=== PATIENT | female | born 1945 | race Two or more races ===

== ENCOUNTER 2021-05-22 05:16 | Inpatient (IN) ==
[2021-05-22 05:41] LABS: Basophils # (auto) 0.01 K/uL (0-0.2); Basophils % (auto) 0.1 %; Eosinophils # (auto) 0.28 K/uL (0-0.5); Eosinophils % (auto) 3.7 %; Hemoglobin 14.6 g/dL (12.0-16.0); Immature Granulocytes # (auto) 0.02 K/uL (0.00-0.02); Immature Granulocytes % (auto) 0.3 %; Lymphocytes # (auto) 1.81 K/uL (1.2-3.4); Lymphocytes % (auto) 23.6 %; Mean Corpuscular Hemoglobin 27.9 pg (25-34); Mean Corpuscular Hgb Conc 33.2 g/dL (32-36); Mean Platelet Volume 10.5 fL (7.4-10.4); Monocytes # (auto) 0.77 K/uL (0.11-0.59); Neutrophils # (auto) 4.78 K/uL (1.4-6.5); Neutrophils % (auto) 62.3 %; Platelet Count 299 K/uL (130-400); RDW Coefficient of Variation 13.9 % (11.5-14.5); RDW Standard Deviation 42.3 fL (36.4-46.3); Red Blood Count 5.24 M/uL (4.2-5.4); White Blood Count 7.67 K/uL (4.8-10.8)
[2021-05-22] MEDS ORDERED: ALBUT/IPRATROP 3MG/0.5MG NEB 3 ML VIAL NEB ONE (05:52)
[2021-05-22 05:59] LABS: Alanine Aminotransferase 24 U/L (12-78); Albumin Level 3.9 gm/dl (3.4-5.0); Aspartate Aminotransferase 24 U/L (15-37); BUN Creatinine Ratio 11.7 (10-20); Blood Urea Nitrogen 11 mg/dl (7-18); Calcium 9.3 mg/dl (8.5-10.1); Carbon Dioxide 25 mmol/L (21-32); Chloride 104 mmol/L (98-107); Creatinine Clr Calc Pharmacy 40.4 ml/min; Est GFR (African American) 67.1 ml/min; Est GFR (Non-African American) 57.9 ml/min; Glucose 157 mg/dl (70-99); Magnesium 2.4 mg/dl (1.8-2.4); Potassium 3.6 mmol/L (3.5-5.1); Sodium 136 mmol/L (136-145)
[2021-05-22 06:04] LABS: Albumin Globulin Ratio 0.8 (0.9-2); Alkaline Phosphatase 110 U/L (45-117); Bilirubin,Total 0.4 mg/dl (0.2-1); NT Pro B Type Natriuretic Pept 137 pg/ml (0-900); Total Protein 8.9 gm/dl (6.4-8.2); Troponin I < 0.015 ng/ml (0-0.045)
[2021-05-22] MEDS ORDERED: methylPREDNISolone 125 MG/2 ML VIAL IV STA (06:11)
[2021-05-22] MEDS ORDERED: MAGNESIUM SULFATE / D5W 1 GM/100 ML BAG IV STA (06:11)
--- NOTE | 2021-05-22 06:20 | Emergency Department Note ---
History of Present Illness General Chief complaint: Respiratory Problems Stated complaint: HARD TIME BREATHING Time Seen by Provider: 05/22/21 05:28 Source: patient Mode of arrival: ambulatory Limitations: physical limitation History of Present Illness Provider complaint: trouble breathing Onset (ago): day(s) 3 Treatments prior to arrival: none This is a 75-year-old female presents emergency department complaining of increased shortness of breath. Patient markedly dyspneic, can speak in 1 or 2 word phrases to obtain history which was limited due to her clinical acuity. Patient states she has a history of both heart and lung problems. Patient states she has previously been hospitalized for difficulty breathing. Patient denies any recent fevers or chills. Denies any recent illness. Denies that she lives with anyone who is sick. States she does use inhalers at home. States she does not wear home oxygen. Pt seen during a time of high acuity and national emergency pandemic while wearing PPE. Home Medications Medication Instructions Recorded Confirmed Type albuterol sulfate 90 mcg/actuation 2 puff INHALATION Q6H PRN 04/25/20 05/22/21 History aerosol inhaler (Ventolin HFA) aspirin 81 mg tablet,delayed 81 mg PO DAILY #30 tab 04/25/20 05/22/21 Rx release (Adult Aspirin Regimen) cyclobenzaprine 10 mg tablet 10 mg PO TID PRN 04/25/20 05/22/21 History omeprazole 20 mg capsule,delayed 20 mg PO QAM 04/25/20 05/22/21 History release tiotropium bromide 18 mcg capsule 1 cap INHALATION DAILY #30 inh 04/25/20 05/22/21 Rx with inhalation device (Spiriva with HandiHaler) betamethasone dipropionate 0.05 % 1 applic TOPICAL DAILY PRN #15 g 05/23/20 05/22/21 Rx topical cream nitroglycerin 0.4 mg sublingual 0.4 mg SUBLINGUAL Q5M PRN #30 tab 05/23/20 05/22/21 Rx tablet atorvastatin 40 mg tablet 40 mg PO HS 05/22/21 05/22/21 History duloxetine 30 mg capsule,delayed 30 mg PO QAM 05/22/21 05/22/21 History release (Cymbalta) fluticasone 250 mcg-salmeterol 50 1 inh INHALATION Q12H 05/22/21 05/22/21 History mcg/dose blistr powdr for inhalation (Advair Diskus) ibuprofen 200 mg tablet 600 mg PO Q6H PRN 05/22/21 05/22/21 History lisinopril 20 mg tablet 20 mg PO QAM 05/22/21 05/22/21 History promethazine 25 mg tablet 25 mg PO TID PRN 05/22/21 05/22/21 History Allergies Allergy/AdvReac Type Severity Reaction Status Date / Time No Known Allergies Allergy Verified 05/22/21 07:08 Past Med/Surg History Medical History COPD (chronic obstructive pulmonary disease) Coronary artery disease Hypertension Myocardial infarct, old Surgical History History of appendectomy History of delivery History of hysterectomy Family History Denies family history of Ovarian cancer Prostate cancer Myocardial infarction Breast cancer Colorectal cancer Social History Smoking Status: Never smoker Second Hand Exposure: No; Do You Dip or Chew Tobacco: No; Tobacco Cessation Education Requested by Patient: No Hx Alcohol Use: No Hx Substance Use: No Preferred Language: Beninese Communication Ability: Effective Certified Orthotist Practice Manager Required: No Beliefs That Will Affect Care: None marital status: Current Living Situation: Family current occupational status: retired Other Information That Helps Us Care for You: No Feels Safe at Home: Yes Safety Concerns: Feels Safe At This Time Dental Care, Regularly: Yes Physical Activity Frequency: Other Physical Activity Frequency Comment: not regular-up and down stairs Seatbelt Use: always Sunscreen Use: No Assistive Devices: Oxygen - Continuous Review of Systems A total of 10 systems reviewed and were otherwise negative All systems reviewed & are unremarkable except as noted in HPI & below Physical Exam Vital Signs Vital Signs - 24 hr 05/22/21 07:00 05/22/21 07:30 05/22/21 08:00 Pulse Rate 99 H 98 H 93 H Pulse Rate from SpO2 Sensor 101 H 103 H 91 H Respiratory Rate 24 23 22 Blood Pressure 142/106 H Blood Pressure Mean 118 Pulse Oximetry 95 100 100 Oxygen Delivery Method Oxygen Flow Rate 05/22/21 08:30 05/22/21 09:00 Pulse Rate 103 H 96 H Pulse Rate from SpO2 Sensor 102 H 97 H Respiratory Rate 27 H 22 Blood Pressure 148/98 H Blood Pressure Mean 114 Pulse Oximetry 96 97 Oxygen Delivery Method Nasal Cannula Oxygen Flow Rate 3 GENERAL: alert, unwell appearing, well nourished, severe distress, non-toxic EYE EXAM: normal conjunctiva, PERRL and EOM's grossly intact OROPHARYNX: no exudate, no erythema, lips, buccal mucosa, and tongue normal and mucous membranes are moist NECK: supple, no nuchal rigidity, no adenopathy, non-tender, no stridor LUNGS: Clear to auscultation. Normal chest wall mechanics, audible wheezing from the doorway HEART: no murmurs, S1 normal and S2 normal ABDOMEN: abdomen soft, non-tender, normo-active bowel sounds, no masses, no rebound or guarding. BACK: Back is symmetrical on inspection and there is no deformity, no midline tenderness, no CVA tenderness. SKIN: no rashes and no bruising UPPER EXTREMITIES: upper extremities are grossly normal. FROM, nml pulses b/l. LOWER EXTREMITIES: No pitting edema. FROM, nml pulses b/l. NEURO EXAM: Normal sensorium, cranial nerves II-XII grossly intact, normal speech, no gross weakness of arms, no gross weakness of legs. Gross sensation intact. Course Course 0602: Patient on BiPAP, oxygen saturations improved. Patient updated on chest x -ray result. Family now at bedside states patient's breathing has been worsening over the last 2 to 3 days. Cough worsened earlier tonight, and then he was awakened and could hear her breathing in his bedroom and knew that she needed to come to the ER. He denies there are any sick contacts in the household. Administered Medications Albuterol (Albut/Ipratrop 3mg/0.5mg Neb 3 Ml Vial) 3 ml NEB QIDR EZEQUIEL Stop: 06/21/21 11:34 Last Admin: 05/22/21 20:03 Dose: 3 ml Documented by: [id number] Admin: 05/22/21 14:17 Dose: 3 ml Documented by: [id number] Admin: 05/22/21 12:08 Dose: 3 ml Documented by: [id number] Aspirin (Aspirin 81 Mg Ectab) 81 mg PO DAILY [facility] Stop: 06/21/21 11:59 Last Admin: 05/22/21 13:07 Dose: 81 mg Documented by: [id number] Atorvastatin Calcium (Atorvastatin 40 Mg Tab) 40 mg PO HS [facility] Stop: 06/21/21 20:59 Last Admin: 05/22/21 21:45 Dose: 40 mg Documented by: [id number] Duloxetine HCl (Duloxetine Hcl 30 Mg Cap) 30 mg PO QAM [facility] Stop: 06/21/21 11:59 Last Admin: 05/22/21 13:06 Dose: 30 mg Documented by: [id number] Enoxaparin Sodium (Enoxaparin Inj 40 Mg/0.4 Ml Syr) 40 mg SQ DAILY@1200 [facility] Stop: 06/21/21 11:59 Last Admin: 05/22/21 13:07 Dose: 40 mg Documented by: [id number] Guaifenesin (Guaifenesin 600 Mg Tabcr) 600 mg PO Q12 [facility] Stop: 06/21/21 20:59 Last Admin: 05/22/21 21:46 Dose: 600 mg Documented by: [id number] Azithromycin 500 mg/ Dextrose 255 mls @ 127.5 mls/hr IV DAILY@1200 [facility] Stop: 05/29/21 11:59 Last Infusion: 05/22/21 15:45 Dose: 0 mls/hr Documented by: [id number] Admin: 05/22/21 13:04 Dose: 127.5 mls/hr Documented by: [id number] Methylprednisolone 40 mg/ (Syringe) 0.64 mls @ 1.5 mls/min IV Q8H [facility] Stop: 06/21/21 19:59 Last Admin: 05/23/21 04:34 Dose: 1.5 mls/min Documented by: [id number] Admin: 05/22/21 19:41 Dose: 1.5 mls/min Documented by: [id number] Lisinopril (Lisinopril 20 Mg Tab) 20 mg PO QAM [facility] Stop: 06/21/21 11:59 Last Admin: 05/22/21 13:06 Dose: 20 mg Documented by: [id number] Discontinued Medications Albuterol (Albut/Ipratrop 3mg/0.5mg Neb 3 Ml Vial) 12 ml NEB ONE ONE Stop: 05/22/21 05:53 Last Admin: 05/22/21 06:14 Dose: 12 ml Documented by: [id number] Magnesium Sulfate/Dextrose (Magnesium Sulfate / D5w) 1 gm in 100 mls @ 100 mls/hr IV NOW STA Stop: 05/22/21 07:10 Last Infusion: 05/22/21 09:28 Dose: 0 mls/hr Documented by: [id number] Admin: 05/22/21 06:27 Dose: 100 mls/hr Documented by: [id number] Doxycycline Hyclate 100 mg/ (Dextrose) 110 mls @ 50 mls/hr IV NOW STA Stop: 05/22/21 09:03 Last Infusion: 05/22/21 10:10 Dose: 0 mls/hr Documented by: [id number] Admin: 05/22/21 07:37 Dose: 50 mls/hr Documented by: [id number] Methylprednisolone (Methylprednisolone 125 Mg/2 Ml Vial) 60 mg IV NOW STA Stop: 05/22/21 06:12 Last Admin: 05/22/21 06:26 Dose: 60 mg Documented by: [id number] Methylprednisolone (Methylprednisolone 40 Mg/Ml Vial) 40 mg IV Q8H EZEQUIEL Stop: 06/21/21 10:03 Last Admin: 05/22/21 11:33 Dose: 40 mg Documented by: [id number] Critical Care Time Critical Care Time: Yes Total Critical Care Time: 43 Critical care of 43 min performed to assess and manage high likelihood of life- threatening dyspnea and hypoxia, involving labs and imaging performed with assessment to evaluate dyspnea and hypoxia diagnosis with frequent reassessment. This time includes bedside time, treatment discussions with patient/fa jamie/consultants, documentation time and excludes procedure time. Medical Decision Making Differential Diagnosis Differential diagnoses includes but is not limited to pneumonia, bronchitis, COPD/Asthma exacerbation, pneumothorax, pulmonary embolism, congestive heart failure, acute coronary syndrome Medical Records Attestation: I reviewed the patient's medical records. Home Medications Current Medication List: was personally reviewed by me Laboratory Data Attestation: I reviewed the patient's lab results. Result diagrams: 05/22/21 05:25 05/22/21 05:25 Lab Results 05/22/21 05/22/21 05/22/21 Range/Units 05:25 05:25 05:54 WBC 7.67 (4.8-10.8) K/uL RBC 5.24 (4.2-5.4) M/uL Hgb 14.6 (12.0-16.0) g/dL Hct 44.0 (37-47) % MCV 84.0 (80-100) fL MCH 27.9 (25-34) pg MCHC 33.2 (32-36) g/dL RDW Std Deviation 42.3 (36.4-46.3) fL RDW Coeff of Patricia 13.9 (11.5-14.5) % Plt Count 299 (130-400) K/uL MPV 10.5 H (7.4-10.4) fL Immature Gran % (Auto) 0.3 % Neut % (Auto) 62.3 % Lymph % (Auto) 23.6 % Holt % (Auto) 10.0 % Eos % (Auto) 3.7 % Baso % (Auto) 0.1 % Neut # (Auto) 4.78 (1.4-6.5) K/uL Lymph # (Auto) 1.81 (1.2-3.4) K/uL Holt # (Auto) 0.77 H (0.11-0.59) K/uL Eos # (Auto) 0.28 (0-0.5) K/uL Baso # (Auto) 0.01 (0-0.2) K/uL Immature Gran # (Auto) 0.02 (0.00-0.02) K/uL ABG pH Cancelled ABG pCO2 Cancelled ABG pO2 Cancelled ABG HCO3 Cancelled ABG O2 Saturation Cancelled ABG Base Excess Cancelled Joey Test Cancelled Barometric Pressure Cancelled Oxygen Given Cancelled Sodium 136 (136-145) mmol/L Potassium 3.6 (3.5-5.1) mmol/L Chloride 104 (98-107) mmol/L Carbon Dioxide 25 (21-32) mmol/L Anion Gap 7.0 (3-11) BUN 11 (7-18) mg/dl Creatinine 0.96 (0.6-1.2) mg/dl Est Cr Clr Drug Dosing 40.4 ml/min Est GFR ( Amer) 67.1 ml/min Est GFR (Non-Af Amer) 57.9 ml/min BUN/Creatinine Ratio 11.7 (10-20) Glucose 157 H (70-99) mg/dl Calcium 9.3 (8.5-10.1) mg/dl Magnesium 2.4 (1.8-2.4) mg/dl Total Bilirubin 0.4 (0.2-1) mg/dl AST 24 (15-37) U/L ALT 24 (12-78) U/L Alkaline Phosphatase 110 (45-117) U/L Troponin I < 0.015 (0-0.045) ng/ml NT-Pro-B Natriuret Pep 137 (0-900) pg/ml Total Protein 8.9 H (6.4-8.2) gm/dl Albumin 3.9 (3.4-5.0) gm/dl Globulin 5.0 H (2.5-4.0) gm/dl Albumin/Globulin Ratio 0.8 L (0.9-2) COVID-19 Eval Order SARS-CoV-2 (PCR) (Negative) 05/22/21 05/22/21 05/22/21 Range/Units 06:24 06:24 06:41 WBC (4.8-10.8) K/uL RBC (4.2-5.4) M/uL Hgb (12.0-16.0) g/dL Hct (37-47) % MCV (80-100) fL MCH (25-34) pg MCHC (32-36) g/dL RDW Std Deviation (36.4-46.3) fL RDW Coeff of Patricia (11.5-14.5) % Plt Count (130-400) K/uL MPV (7.4-10.4) fL Immature Gran % (Auto) % Neut % (Auto) % Lymph % (Auto) % Holt % (Auto) % Eos % (Auto) % Baso % (Auto) % Neut # (Auto) (1.4-6.5) K/uL Lymph # (Auto) (1.2-3.4) K/uL Holt # (Auto) (0.11-0.59) K/uL Eos # (Auto) (0-0.5) K/uL Baso # (Auto) (0-0.2) K/uL Immature Gran # (Auto) (0.00-0.02) K/uL ABG pH 7.38 ABG pCO2 39 ABG pO2 203 H ABG HCO3 23 ABG O2 Saturation 99.5 H ABG Base Excess -2.4 Joey Test p Barometric Pressure 738.2 Oxygen Given 30% Sodium (136-145) mmol/L Potassium (3.5-5.1) mmol/L Chloride (98-107) mmol/L Carbon Dioxide (21-32) mmol/L Anion Gap (3-11) BUN (7-18) mg/dl Creatinine (0.6-1.2) mg/dl Est Cr Clr Drug Dosing ml/min Est GFR ( Amer) ml/min Est GFR (Non-Af Amer) ml/min BUN/Creatinine Ratio (10-20) Glucose (70-99) mg/dl Calcium (8.5-10.1) mg/dl Magnesium (1.8-2.4) mg/dl Total Bilirubin (0.2-1) mg/dl AST (15-37) U/L ALT (12-78) U/L Alkaline Phosphatase (45-117) U/L Troponin I (0-0.045) ng/ml NT-Pro-B Natriuret Pep (0-900) pg/ml Total Protein (6.4-8.2) gm/dl Albumin (3.4-5.0) gm/dl Globulin (2.5-4.0) gm/dl Albumin/Globulin Ratio (0.9-2) COVID-19 Eval Order Covid19 at [facility] SARS-CoV-2 (PCR) NEGATIVE (Negative) Imaging Data Attestation: I personally reviewed and interpreted this imaging study as follows: My Impression: X-ray: I interpreted the following studies. Chest: A single view study of the chest was reviewed and was negative for cardiomegaly, focal infiltrate, effusion, pulmonary edema, or wide mediastinum. MDM Narrative This is a 75-year-old female who presents with significant dyspnea, work of breathing, tachypnea and was noted to be profoundly hypoxic. She was emergently placed on supplemental oxygen via nasal cannula and I was called urgently to the room. I immediately called respiratory therapy and asked that they bring BiPAP to the bedside. Patient was able to nod and shake her head regarding a very brief initial history. Following treatment with BiPAP, continuous nebulizer, IV Solu-Medrol and IV magnesium, patient's work of breathing decreased, tachypnea decreased, repeat lung exams continued to improve, patient was able to provide additional history. Patient had been worsening over the last several days, increased cough, no change in sputum, denies fevers or chills, denies any known sick contacts. Patient does not typically wear oxygen at home. Patient also has accompanying cardiac history. Discussed all results with patient and family at bedside, despite improvement, I did discuss with him continued monitoring as a precaution. Patient was slowly able to be weaned down to oxygen via nasal cannula. Patient's EKG without acute changes and troponin negative, I do not suspect ACS. No chest x-ray evidence for pulmonary edema or focal infiltrate. I do not suspect PE. An order was placed for continuous cardiac monitoring. The monitor shows a rate of _80_ with _normal sinus_ rhythm. Impression & Plan Dyspnea, COPD exacerbation, Hypoxia Discharge Plan Visit Data Chief Complaint: Respiratory Problems Stated Complaint: HARD TIME BREATHING ED Provider: Faith Torrez Discharge Problem: Dyspnea, COPD exacerbation, Hypoxia Patient Disposition: Admitted As Inpatient Condition: Good Discharge Instructions Interventions: ED Discharge Assessment Last Done: 05/22/21 10:56 Discharge Problem: Dyspnea Qualifiers: Dyspnea type: shortness of breath Qualified Code(s): R06.02 - Shortness of breath
[2021-05-22] MEDS ORDERED: DOXYCYCLINE HYCLATE 100 MG in DEXTROSE 5% 100 ML IV STA (06:52)
[2021-05-22 06:55] LABS: Base Excess ABG -2.4 mEq/L (-9-1.8); HCO3 ABG 23 mmol/L (19-24); Oxygen Saturation ABG 99.5 % (90-95); PCO2 ABG 39 mmHg (35-46); PO2 ABG 203 mmHg (80-95); pH ABG 7.38 (7.35-7.45)
--- NOTE | 2021-05-22 07:20 | XRay Report ---
XR chest 1V portable CLINICAL HISTORY: sob. COMPARISON STUDY: No previous studies for comparison. TECHNIQUE: 1 view of the chest FINDINGS: Single frontal view of the chest demonstrates the cardiomediastinal silhouette to be within normal li mits. The lungs are clear of alveolar opacities. There is no evidence for pleural effusion. There is no evidence for vascular congestion. There is no acute osseous pathology. IMPRESSION: No acute cardiopulmonary disease. ACT 112: Negative or not required by law. Electronically signed by: Jeremías Martinez M.D. 05/22/2021 7:19 AM
--- NOTE | 2021-05-22 10:05 | History & Physical Report ---
Date of Service May 22, 2021 Assessment & Plan (1) COPD exacerbation: Plan: Attending: Dr. Rao Impression: 75-year-old female with a past medical history including COPD, CAD, history of [place], anxiety, hypertension, cerebrovascular disease. 2 to 3-day progressive COPD exacerbation with shortness of breath, wheezes, cough. Negative for COVID-19. Responded well to hour-long nebulizer treatment in the emergency department Patient with history of COPD as diagnosed in [facility] with pulmonary function testing Patient son will try to obtain copies of the PFT reports While inpatient, will treat with methylprednisolone IV 40 mg 3 times daily DuoNeb 4 times daily scheduled We will change patient from her home Spiriva and Advair Diskus to Brio Ellipta while inpatient Due to exacerbation, will most likely need to discharge home on Brio Ellipta We will need to follow-up in the pulmonary office and establish as a new patient. Patient received doxycycline in the emergency department. We will convert to azithromycin while inpatient for the anti-inflammatory properties Follow on med telemetry secondary to hypoxia on arrival (2) Anxiety: Plan: Continue outpatient Cymbalta We will add lorazepam 0.5 mg IV every 6 hours for anxiety secondary to shortness of breath (3) Hypertension: Plan: Continue lisinopril Follow on telemetry per protocol (4) Coronary artery disease: Plan: History of [place] in the past No recent chest pain or tightness Follow on medical telemetry Continue aspirin 81 mg p.o. daily (5) Cerebrovascular disease: Plan: No neurological deficits on exam Continue aspirin 81 mg p.o. daily (6) DVT prophylaxis: Plan: Chemical prophylaxis with enoxaparin 40 mg SQ daily Ambulate as tolerated Please refer to Dr. Rao's addendum for further recommendations and cor rections. Plan: Son is obtaining pulmonary function tests from previous house superintendent Will most likely need repeat PFTs as an outpatient as well as an outpatient appointment with [place] [facility] [place] History of Present Illness Chief Complaint: COPD exacerbation Primary Care Provider: Faith Rodriguez MD Attending: Dr. Rao 75-year-old female with a past medical history including COPD, CAD, history of [place], anxiety, hypertension, cerebrovascular disease. Patient presents with a 2 to 3-day history of progressive shortness of breath. Last night approximidnight her breathing got worse and she had severe bronchospasm. She has a nebulizer at home but does not have any ampules so she was only able to use her rescue inhaler. As the night progressed, she got more short of breath. She presented the emergency department and was given a 1 hour long nebulizer treatment. She was also given 60 mg of methylprednisolone IV and doxycycline 100 mg IV. She improved but continues to have shortness of breath and diffuse bronchospasm. Patient currently denies any chest pain or tightness. She is unaware of tachyarrhythmia. She has no nausea or vomiting. She denies any fever, chills, sweats, rigors at home. No nausea or vomiting. No other previous illness. Patient has not received her Covid vaccinations. She desires to be vaccinated but has not been able to coordinate with outpatient providers. PCR testing in the emergency department was negative. Patient is a lifelong non-smoker. She has no significant vocational exposure to chemicals, dust, silicone. Patient currently lives with her son and grandchildren. No one else in the home has been ill and no one has history of Covid. Allergies Allergy/AdvReac Type Severity Reaction Status Date / Time No Known Allergies Allergy Verified 05/22/21 07:08 Home Medications Medication Instructions Recorded Confirmed Type albuterol sulfate 90 mcg/actuation 2 puff INHALATION Q6H PRN 04/25/20 05/22/21 History aerosol inhaler (Ventolin HFA) aspirin 81 mg tablet,delayed 81 mg PO DAILY #30 tab 04/25/20 05/22/21 Rx release (Adult Aspirin Regimen) cyclobenzaprine 10 mg tablet 10 mg PO TID PRN 04/25/20 05/22/21 History omeprazole 20 mg capsule,delayed 20 mg PO QAM 04/25/20 05/22/21 History release tiotropium bromide 18 mcg capsule 1 cap INHALATION DAILY #30 inh 04/25/20 05/22/21 Rx with inhalation device (Spiriva with HandiHaler) betamethasone dipropionate 0.05 % 1 applic TOPICAL DAILY PRN #15 g 05/23/20 05/22/21 Rx topical cream nitroglycerin 0.4 mg sublingual 0.4 mg SUBLINGUAL Q5M PRN #30 tab 05/23/20 05/22/21 Rx tablet atorvastatin 40 mg tablet 40 mg PO HS 05/22/21 05/22/21 History duloxetine 30 mg capsule,delayed 30 mg PO QAM 05/22/21 05/22/21 History release (Cymbalta) fluticasone 250 mcg-salmeterol 50 1 inh INHALATION Q12H 05/22/21 05/22/21 History mcg/dose blistr powdr for inhalation (Advair Diskus) ibuprofen 200 mg tablet 600 mg PO Q6H PRN 05/22/21 05/22/21 History lisinopril 20 mg tablet 20 mg PO QAM 05/22/21 05/22/21 History promethazine 25 mg tablet 25 mg PO TID PRN 05/22/21 05/22/21 History Past Med/Surg History Medical History COPD (chronic obstructive pulmonary disease) Coronary artery disease Hypertension Myocardial infarct, old Surgical History History of appendectomy History of delivery History of hysterectomy Family History Denies family history of Ovarian cancer Prostate cancer Myocardial infarction Breast cancer Colorectal cancer Social History Smoking Status: Never smoker Second Hand Exposure: No; Do You Dip or Chew Tobacco: No; Tobacco Cessation Education Requested by Patient: No Hx Alcohol Use: No Hx Substance Use: No Preferred Language: Arabic Communication Ability: Effective Microsoft Application Developer Required: No Beliefs That Will Affect Care: None marital status: Current Living Situation: Family current occupational status: retired Other Information That Helps Us Care for You: No Feels Safe at Home: Yes Safety Concerns: Feels Safe At This Time Dental Care, Regularly: Yes Physical Activity Frequency: Other Physical Activity Frequency Comment: not regular-up and down stairs Seatbelt Use: always Sunscreen Use: No Assistive Devices: Oxygen - Continuous Review of Systems Review of Systems: All systems reviewed & are unremarkable except as noted in Subjective Physical Exam Physical Exam: GENERAL : No acute distress EYES: No icterus, gaze conjugate NOSE: No evidence of epistaxis MOUTH: No lesions or candidiasis NECK: Supple LUNGS: Diffuse bronchospasm and rhonchi. Very diminished breath sounds. Good inspirational effort but limited movement of air. HEART: Regular, rate in the low 100s ABDOMEN: Soft, NT, ND, BS Present EXTREMITIES: No LE edema, pedal pulses intact and equal bilaterally NEURO: A&OX3 Results & Data Results & Data ([facility]) Vital Signs (Past 12 Hours) Vital Signs Temp Pulse Resp BP Pulse Ox 05/22/21 09:00 96 H 22 148/98 H 97 05/22/21 08:30 103 H 27 H 96 05/22/21 08:00 93 H 22 100 05/22/21 07:30 98 H 23 142/106 H 100 05/22/21 07:00 99 H 24 95 05/22/21 06:30 107 H 26 H 150/110 H 100 05/22/21 06:14 20 100 05/22/21 06:12 97 H 27 H 96 05/22/21 06:00 110 H 28 H 148/126 H 97 05/22/21 05:34 112 H 27 H 189/162 H 97 05/22/21 05:30 37.4 C 114 H 28 H 189/162 H 83 L 05/22/21 05:29 110 H 29 H 95 Laboratory Results 05/22/21 05:25 05/22/21 05:25 COVID-19 Results 05/22/21 06:24 SARS-CoV-2 (PCR) NEGATIVE 05/22/21 05/22/21 05:54 06:41 ABG pH Cancelled 7.38 ABG pCO2 Cancelled 39 ABG pO2 Cancelled 203 H ABG HCO3 Cancelled 23 ABG O2 Saturation Cancelled 99.5 H ABG Base Excess Cancelled -2.4 05/22/21 05:25 Troponin I < 0.015 Diagnostic Findings Chest X-Ray 05/22/21 05:28 XR chest 1V portable CLINICAL HISTORY: sob. COMPARISON STUDY: No previous studies for comparison. TECHNIQUE: 1 view of the chest FINDINGS: Single frontal view of the chest demonstrates the cardiomediastinal silhouette to be within normal limits. The lungs are clear of alveolar opacities. There is no evidence for pleural effusion. There is no evidence for vascular congestion. There is no acute osseous pathology. IMPRESSION: No acute cardiopulmonary disease. ACT 112: Negative or not required by law. Electronically signed by: Jeremías Martinez M.D. 05/22/2021 7:19 AM Medications Administered Current Inpatient Medications Methylprednisolone (Methylprednisolone 40 Mg/Ml Vial) 40 mg IV Q8H EZEQUIEL Stop: 06/21/21 10:03 Code Status & VTE Plan Code Status Full resuscitation: Level 1 VTE Prophylaxis Plan VTE Prophylaxis will be ordered: Yes Supervising Physician Co-Signing Physician Notes I reviewed above note and agree with it. During face to face encounter, I performed history and physical examination. D/W APC Jerry. Answered all of the patient's questions. Patient will be ADMITTED for COPD EXACERBATION. On azithromycin and steroids. PG Care Time/CCT Total # of Minutes Spent Total Time Spent with Patient: Total time spent is greater than 50% in coordination of care (as documented) at patient's floor/unit and/or counseling patient: 60 minutes Coding Level of Care Code 48160 Initial Inpt Care Lvl 3 Diagnoses COPD exacerbation J44.1 Anxiety F41.9 Hypertension I10 Coronary artery disease I25.10 Cerebrovascular disease I67.9 DVT prophylaxis Z29.9 Time Spent (min) 60
--- NOTE | 2021-05-22 11:21 | Electrocardiogram Report ---
Test Reason : Blood Pressure : / mmHG Vent. Rate : 106 BPM Atrial Rate : 106 BPM P-R Int : 142 ms QRS Dur : 088 ms QT Int : 338 ms P-R-T Axes : 052 003 028 degrees QTc Int : 448 ms Poor data quality, interpretation may be adversely affected Sinus tachycardia with sinus arrhythmia Nonspecific ST and T wave abnormality Abnormal ECG No previous ECGs available Confirmed by Harshil Pablo ([id number]) on 05/22/2021 11:20:34 AM Referred By: Confirmed By:Venkata Pablo
[2021-05-22] MEDS ORDERED: CYCLOBENZAPRINE HCL 10 MG TAB PO PRN (11:35)
[2021-05-22] MEDS ORDERED: MAGNESIUM HYDROXIDE SUSP 30 ML UDC PO PRN (11:35)
[2021-05-22] MEDS ORDERED: LORazepam 0.5 MG/1 ML VIAL IV PRN (11:35)
[2021-05-22] MEDS ORDERED: POLYETHYLENE (MIRALAX) 17 GM PACK PO PRN (11:35)
[2021-05-22] MEDS ORDERED: PROMETHAZINE HCL 25 MG TAB PO PRN (11:35)
[2021-05-22] MEDS ORDERED: ALUMINUM/MAGNESIUM SUSP 30 ML UDC PO PRN (11:35)
[2021-05-22] MEDS ORDERED: NITROGLYCERIN SL 0.4 MG/TAB TAB SL PRN (11:35)
[2021-05-22] MEDS ORDERED: ACETAMINOPHEN 325 MG TAB PO PRN (11:35)
[2021-05-22] MEDS ORDERED: BETAMETHASONE DIP AUG (DIPROLENE) 0.05% CR 15 GM TUBE EXT PRN (12:05)
[2021-05-22] MEDS: ALBUT/IPRATROP 3MG/0.5MG NEB 3 ML VIAL NEB SCH ×3 (12:08→20:03)
[2021-05-22] MEDS: AZITHROMYCIN 500 MG in DEXTROSE 5% 250 ML IV SCH (13:04)
[2021-05-22] MEDS: DULoxetine HCL 30 MG CAP PO SCH (13:06)
[2021-05-22] MEDS: lisinopril 20 MG TAB PO SCH (13:06)
[2021-05-22] MEDS: ENOXAPARIN INJ 40 MG/0.4 ML SYR SQ SCH (13:07)
[2021-05-22] MEDS: ASPIRIN 81 MG ECTAB PO SCH (13:07)
[2021-05-22] MEDS: methylPREDNISolone 40 MG in SYRINGE 0 ML IV SCH (19:41)
[2021-05-22] MEDS: ATORVASTATIN 40 MG TAB PO SCH (21:45)
[2021-05-22] MEDS: guaiFENesin 600 MG TABCR PO SCH (21:46)
[2021-05-23] MEDS: methylPREDNISolone 40 MG in SYRINGE 0 ML IV SCH ×3 (04:34→20:27)
[2021-05-23] MEDS: guaiFENesin 600 MG TABCR PO SCH ×2 (07:02→20:27)
[2021-05-23] MEDS: ASPIRIN 81 MG ECTAB PO SCH (07:03)
[2021-05-23] MEDS: PANTOprazole 40 MG TAB PO SCH (07:03)
[2021-05-23] MEDS: lisinopril 20 MG TAB PO SCH (07:03)
[2021-05-23] MEDS: DULoxetine HCL 30 MG CAP PO SCH (07:04)
--- NOTE | 2021-05-23 07:19 | XRay Report ---
XR chest 1V portable CLINICAL HISTORY: Hypoxia. COMPARISON STUDY: Chest radiograph May 22, 2021. FINDINGS: Lung volumes are normal. Lungs are clear. There is no pneumothorax or pleural effusion. Car diac size is normal. Mediastinal contours are normal. There is no evidence for pulmonary edema. IMPRESSION: No acute cardiopulmonary findings. ACT 112: Negative or not required by law. Electronically signed by: Rolando Mathew M.D. 05/23/2021 7:18 AM
[2021-05-23] MEDS: ALBUT/IPRATROP 3MG/0.5MG NEB 3 ML VIAL NEB SCH ×4 (07:27→19:37)
[2021-05-23 08:10] LABS: Basophils # (auto) 0.01 K/uL (0-0.2); Hematocrit (blood only) 39.7 % (37-47); Hemoglobin 13.4 g/dL (12.0-16.0); Immature Granulocytes # (auto) 0.04 K/uL (0.00-0.02); Immature Granulocytes % (auto) 0.2 %; Lymphocytes # (auto) 1.26 K/uL (1.2-3.4); Lymphocytes % (auto) 5.9 %; Mean Corpuscular Hemoglobin 27.3 pg (25-34); Mean Corpuscular Hgb Conc 33.8 g/dL (32-36); Mean Platelet Volume 10.4 fL (7.4-10.4); Monocytes # (auto) 0.59 K/uL (0.11-0.59); Monocytes % (auto) 2.8 %; Neutrophils # (auto) 19.39 K/uL (1.4-6.5); Neutrophils % (auto) 91.1 %; Platelet Count 325 K/uL (130-400); RDW Standard Deviation 41.8 fL (36.4-46.3); White Blood Count 21.29 K/uL (4.8-10.8)
[2021-05-23 09:08] LABS: BUN Creatinine Ratio 17.5 (10-20); Calcium 9.9 mg/dl (8.5-10.1); Creatinine Clr Calc Pharmacy 47.6 ml/min; Est GFR (African American) 83.6 ml/min; Est GFR (Non-African American) 72.1 ml/min; Potassium 4.1 mmol/L (3.5-5.1)
[2021-05-23] MEDS: ENOXAPARIN INJ 40 MG/0.4 ML SYR SQ SCH (10:10)
[2021-05-23] MEDS: AZITHROMYCIN 500 MG in DEXTROSE 5% 250 ML IV SCH (12:01)
[2021-05-23] MEDS: cefTRIAXone SODIUM 1,000 MG in DEXTROSE 5% 50 ML IV SCH (18:09)
[2021-05-23] MEDS: ATORVASTATIN 40 MG TAB PO SCH (20:27)
--- NOTE | 2021-05-23 21:52 | Hospitalist Progress Note ---
Date of Service May 23, 2021 Assessment & Plan (1) COPD exacerbation: Plan: Attending: Dr. Rao Impression: 75-year-old female with a past medical history including COPD, CAD, history of [place], anxiety, hypertension, cerebrovascular disease. 2 to 3-day progressive COPD exacerbation with shortness of breath, wheezes, cough. Negative for COVID-19. Responded well to hour-long nebulizer treatment in the emergency department Patient with history of COPD as diagnosed in [facility] with pulmonary function testing Patient son will try to obtain copies of the PFT reports While inpatient, will treat with methylprednisolone IV 40 mg 3 times daily DuoNeb 4 times daily scheduled We will change patient from her home Spiriva and Advair Diskus to Brio Ellipta while inpatient Due to exacerbation, will most likely need to discharge home on Brio Ellipta We will need to follow-up in the pulmonary office and establish as a new patient. Patient received doxycycline in the emergency department. We will convert to azithromycin while inpatient for the anti-inflammatory properties Follow on med telemetry secondary to hypoxia on arrival will add ceftriaxone today. continue azithromycin. will cut back on solumedrol. Patient is improving slowly. D/W son. (2) Anxiety: Plan: Continue outpatient Cymbalta We will add lorazepam 0.5 mg IV every 6 hours for anxiety secondary to shortness of breath (3) Hypertension: Plan: Continue lisinopril Follow on telemetry per protocol (4) Coronary artery disease: Plan: History of [place] in the past No recent chest pain or tightness Follow on medical telemetry Continue aspirin 81 mg p.o. daily (5) Cerebrovascular disease: Plan: No neurological deficits on exam Continue aspirin 81 mg p.o. daily (6) DVT prophylaxis: Plan: Chemical prophylaxis with enoxaparin 40 mg SQ daily Ambulate as tolerated Plan: Son is obtaining pulmonary function tests from previous director diabetes Will most likely need repeat PFTs as an outpatient as well as an outpatient appointment with the [facility] pulmonary group Admission and Anticipated Discharge Date Admission Date: May 22, 2021 Subjective Patient reports that she is breathing better. Review of Systems Review of Systems: All systems reviewed & are unremarkable except as noted in HPI & below Physical Exam Physical Exam: GENERAL : No acute distress EYES: No icterus, gaze conjugate NOSE: No evidence of epistaxis MOUTH: No lesions or candidiasis NECK: Supple LUNGS: Diffuse bronchospasm and rhonchi. Very diminished breath sounds. Good inspirational effort but limited movement of air. HEART: Regular, rate in the low 100s ABDOMEN: Soft, NT, ND, BS Present EXTREMITIES: No LE edema, pedal pulses intact and equal bilaterally NEURO: A&OX3 Results & Data Results & Data ([facility]) Vital Signs (Past 12 Hours) Vital Signs Temp Pulse Resp BP BP Pulse Ox 05/23/21 19:37 111 H 20 92 05/23/21 19:32 36.6 C 111 H 18 94/61 L 91 05/23/21 15:07 79 18 95 05/23/21 14:53 36.7 C 111 H 18 112/72 93 05/23/21 11:41 90 18 96 05/23/21 10:58 36.7 C 79 18 98/64 L 97 PG Care Time/CCT Total # of Minutes Spent Total Time Spent with Patient: Total time spent is greater than 50% in coordination of care (as documented) at patient's floor/unit and/or counseling patient: Coding Level of Care Code 94197 Subseq Hosp Care Lvl 2 Diagnoses COPD exacerbation J44.1 Anxiety F41.9 Hypertension I10 Coronary artery disease I25.10 Cerebrovascular disease I67.9 DVT prophylaxis Z29.9
[2021-05-24] MEDS: ALBUT/IPRATROP 3MG/0.5MG NEB 3 ML VIAL NEB SCH ×4 (07:44→21:14)
[2021-05-24] MEDS: PANTOprazole 40 MG TAB PO SCH (07:52)
[2021-05-24] MEDS: ASPIRIN 81 MG ECTAB PO SCH (07:52)
[2021-05-24] MEDS: DULoxetine HCL 30 MG CAP PO SCH (07:52)
[2021-05-24] MEDS: methylPREDNISolone 40 MG in SYRINGE 0 ML IV SCH (07:52)
[2021-05-24] MEDS: lisinopril 20 MG TAB PO SCH (07:53)
[2021-05-24] MEDS: guaiFENesin 600 MG TABCR PO SCH ×2 (07:53→19:44)
[2021-05-24 10:21] LABS: Hematocrit (blood only) 39.2 % (37-47); Hemoglobin 13.2 g/dL (12.0-16.0); Mean Corpuscular Hemoglobin 27.4 pg (25-34); Mean Corpuscular Hgb Conc 33.7 g/dL (32-36); Mean Corpuscular Volume 81.3 fL (80-100); Platelet Count 355 K/uL (130-400); RDW Coefficient of Variation 14.1 % (11.5-14.5); Red Blood Count 4.82 M/uL (4.2-5.4); White Blood Count 24.37 K/uL (4.8-10.8)
[2021-05-24 10:41] LABS: BUN Creatinine Ratio 19.8 (10-20); Calcium 9.6 mg/dl (8.5-10.1); Creatinine Clr Calc Pharmacy 32.9 ml/min; Est GFR (African American) 52.2 ml/min; Est GFR (Non-African American) 45.1 ml/min; Potassium 3.9 mmol/L (3.5-5.1)
[2021-05-24] MEDS: ENOXAPARIN INJ 40 MG/0.4 ML SYR SQ SCH (11:50)
[2021-05-24] MEDS: FLUTICASONE/VILANTEROL 100/25MCG 14 PUFFS/INHALER INH SCH (11:50)
[2021-05-24] MEDS: AZITHROMYCIN 500 MG in DEXTROSE 5% 250 ML IV SCH (11:50)
[2021-05-24] MEDS: cefTRIAXone SODIUM 1,000 MG in DEXTROSE 5% 50 ML IV SCH (18:11)
[2021-05-24] MEDS: ATORVASTATIN 40 MG TAB PO SCH (19:44)
--- NOTE | 2021-05-24 21:09 | Hospitalist Progress Note ---
Date of Service May 24, 2021 Assessment & Plan (1) COPD exacerbation: Plan: Impression: 75-year-old female with a past medical history including COPD, CAD, history of [place], anxiety, hypertension, cerebrovascular disease. 2 to 3-day progressive COPD exacerbation with shortness of breath, wheezes, cough. Negative for COVID-19. Responded well to hour-long nebulizer treatment in the emergency department Patient with history of COPD as diagnosed in [facility] with pulmonary function testing Patient son will try to obtain copies of the PFT reports While inpatient, will treat with methylprednisolone IV 40 mg 3 times daily DuoNeb 4 times daily scheduled We will change patient from her home Spiriva and Advair Diskus to Brio Ellipta while inpatient Due to exacerbation, will most likely need to discharge home on Brio Ellipta We will need to follow-up in the pulmonary office and establish as a new patient. Patient received doxycycline in the emergency department. We will convert to azithromycin while inpatient for the anti-inflammatory properties Follow on med telemetry secondary to hypoxia on arrival continue azithromycin/ ceftriaxone. will continue solumedrol. Added fluticasone/vilanterol Patient is improving slowly. D/W son. (2) Anxiety: Plan: Continue outpatient Cymbalta We will add lorazepam 0.5 mg IV every 6 hours for anxiety secondary to shortness of breath (3) Hypertension: Plan: Continue lisinopril Follow on telemetry per protocol (4) Coronary artery disease: Plan: History of [place] in the past No recent chest pain or tightness Follow on medical telemetry Continue aspirin 81 mg p.o. daily (5) Cerebrovascular disease: Plan: No neurological deficits on exam Continue aspirin 81 mg p.o. daily (6) DVT prophylaxis: Plan: Chemical prophylaxis with enoxaparin 40 mg SQ daily Ambulate as tolerated Plan: Son is obtaining pulmonary function tests from previous manager chemical Will most likely need repeat PFTs as an outpatient as well as an outpatient appointment with [place] [facility] [place] Admission and Anticipated Discharge Date Admission Date: May 22, 2021 Subjective Patient states that she continues to improve. Paytient reports less SOB. Review of Systems Review of Systems: All systems reviewed & are unremarkable except as noted in HPI & below Physical Exam Physical Exam: GENERAL : No acute distress EYES: No icterus, gaze conjugate NOSE: No evidence of epistaxis MOUTH: No lesions or candidiasis NECK: Supple LUNGS: Diffuse bronchospasm and rhonchi. Very diminished breath sounds. Good inspirational effort but limited movement of air. HEART: Regular, rate in the low 100s ABDOMEN: Soft, NT, ND, BS Present EXTREMITIES: No LE edema, pedal pulses intact and equal bilaterally NEURO: A&OX3 Results & Data Results & Data ([facility]) Vital Signs (Past 12 Hours) Vital Signs Temp Pulse Resp BP BP Pulse Ox 05/24/21 19:51 36.8 C 81 18 125/75 93 05/24/21 14:46 36.8 C 97 H 107/68 97 05/24/21 14:42 102 H 18 94 05/24/21 11:56 36.6 C 84 16 111/66 96 05/24/21 10:25 81 18 98 PG Care Time/CCT Total # of Minutes Spent Total Time Spent with Patient: Total time spent is greater than 50% in coordination of care (as documented) at patient's floor/unit and/or counseling patient: Coding Level of Care Code 94411 Subseq Hosp Care Lvl 2 Diagnoses COPD exacerbation J44.1 Anxiety F41.9 Hypertension I10 Coronary artery disease I25.10 Cerebrovascular disease I67.9 DVT prophylaxis Z29.9
[2021-05-25 06:02] LABS: Hematocrit (blood only) 36.8 % (37-47); Hemoglobin 12.2 g/dL (12.0-16.0); Mean Corpuscular Hgb Conc 33.2 g/dL (32-36); Mean Corpuscular Volume 81.4 fL (80-100); Platelet Count 295 K/uL (130-400); RDW Standard Deviation 42.2 fL (36.4-46.3); Red Blood Count 4.52 M/uL (4.2-5.4); White Blood Count 15.21 K/uL (4.8-10.8)
[2021-05-25] MEDS: ALBUT/IPRATROP 3MG/0.5MG NEB 3 ML VIAL NEB SCH ×4 (06:18→19:25)
[2021-05-25 06:40] LABS: BUN Creatinine Ratio 24.3 (10-20); Calcium 8.6 mg/dl (8.5-10.1); Creatinine Clr Calc Pharmacy 43.1 ml/min; Est GFR (African American) 73.5 ml/min; Est GFR (Non-African American) 63.4 ml/min
[2021-05-25] MEDS: methylPREDNISolone 40 MG in SYRINGE 0 ML IV SCH (07:43)
[2021-05-25] MEDS: FLUTICASONE/VILANTEROL 100/25MCG 14 PUFFS/INHALER INH SCH (07:44)
[2021-05-25] MEDS: ASPIRIN 81 MG ECTAB PO SCH (07:44)
[2021-05-25] MEDS: guaiFENesin 600 MG TABCR PO SCH ×2 (07:44→20:19)
[2021-05-25] MEDS: lisinopril 20 MG TAB PO SCH (07:44)
[2021-05-25] MEDS: PANTOprazole 40 MG TAB PO SCH (07:44)
[2021-05-25] MEDS: DULoxetine HCL 30 MG CAP PO SCH (07:44)
--- NOTE | 2021-05-25 08:54 | Hospitalist Progress Note ---
Date of Service May 25, 2021 Assessment & Plan (1) COPD exacerbation: Plan: Attending: Dr. Rao Impression: 75-year-old female with a past medical history including COPD, CAD, history of [place], anxiety, hypertension, cerebrovascular disease. 2 to 3-day progressive COPD exacerbation with shortness of breath, wheezes, cough. Negative for COVID-19. Responded well to hour-long nebulizer treatment in the emergency department Patient with history of COPD as diagnosed in [facility] with pulmonary function testing Patient son will try to obtain copies of the PFT reports Methylprednisolone has been cut back/ DuoNeb 4 times daily PRN We will change patient from her home Spiriva and Advair Diskus to Brio Ellipta while inpatient Due to exacerbation, will most likely need to discharge home on Brio Ellipta We will need to follow-up in the pulmonary office and establish as a new patient. Continue ceftriaxone and azithromycin. Follow on med telemetry secondary to hypoxia on arrival (2) Anxiety: Plan: Continue outpatient Cymbalta We will add lorazepam 0.5 mg IV every 6 hours for anxiety secondary to shortness of breath (3) Hypertension: Plan: Continue lisinopril Follow on telemetry per protocol (4) Coronary artery disease: Plan: History of [place] in the past No recent chest pain or tightness Follow on medical telemetry Continue aspirin 81 mg p.o. daily (5) Cerebrovascular disease: Plan: No neurological deficits on exam Continue aspirin 81 mg p.o. daily (6) DVT prophylaxis: Plan: Chemical prophylaxis with enoxaparin 40 mg SQ daily Ambulate as tolerated Plan: Son is obtaining pulmonary function tests from previous domestic violence advocate Will most likely need repeat PFTs as an outpatient as well as an outpatient appointment with [place] [facility] [place] Admission and Anticipated Discharge Date Admission Date: May 22, 2021 Subjective Patient reports breathing better. She is not at baseline. She continues to have a cough, but reports it is not productive. Review of Systems Review of Systems: All systems reviewed & are unremarkable except as noted in HPI & below Physical Exam Physical Exam: GENERAL : No acute distress EYES: No icterus, gaze conjugate NOSE: No evidence of epistaxis MOUTH: No lesions or candidiasis NECK: Supple LUNGS: Diffuse bronchospasm and rhonchi. Very diminished breath sounds. Good inspirational effort but limited movement of air. HEART: Regular, rate in the low 100s ABDOMEN: Soft, NT, ND, BS Present EXTREMITIES: No LE edema, pedal pulses intact and equal bilaterally NEURO: A&OX3 Results & Data Results & Data ([facility]) Vital Signs (Past 12 Hours) Vital Signs Temp Pulse Resp BP Pulse Ox 05/25/21 07:00 36.8 C 95 H 16 127/74 91 05/25/21 06:18 80 22 91 05/25/21 03:34 36.5 C 70 16 137/83 98 05/24/21 22:53 36.7 C 76 18 133/73 91 PG Care Time/CCT Total # of Minutes Spent Total Time Spent with Patient: Total time spent is greater than 50% in coordination of care (as documented) at patient's floor/unit and/or counseling patient: Coding Level of Care Code 78578 Subseq Hosp Care Lvl 2 Diagnoses COPD exacerbation J44.1 Anxiety F41.9 Hypertension I10 Coronary artery disease I25.10 Cerebrovascular disease I67.9 DVT prophylaxis Z29.9 Time Spent (min) 25
[2021-05-25] MEDS: AZITHROMYCIN 500 MG in DEXTROSE 5% 250 ML IV SCH (12:04)
[2021-05-25] MEDS: ENOXAPARIN INJ 40 MG/0.4 ML SYR SQ SCH (12:40)
[2021-05-25] MEDS: cefTRIAXone SODIUM 1,000 MG in DEXTROSE 5% 50 ML IV SCH (18:09)
[2021-05-25] MEDS: ATORVASTATIN 40 MG TAB PO SCH (20:19)
[2021-05-26] MEDS: ALBUT/IPRATROP 3MG/0.5MG NEB 3 ML VIAL NEB SCH ×3 (06:04→15:30)
[2021-05-26] MEDS: DULoxetine HCL 30 MG CAP PO SCH (07:39)
[2021-05-26] MEDS: guaiFENesin 600 MG TABCR PO SCH (07:39)
[2021-05-26] MEDS: methylPREDNISolone 40 MG in SYRINGE 0 ML IV SCH (07:39)
[2021-05-26] MEDS: PANTOprazole 40 MG TAB PO SCH (07:40)
[2021-05-26] MEDS: lisinopril 20 MG TAB PO SCH (07:40)
[2021-05-26] MEDS: ASPIRIN 81 MG ECTAB PO SCH (07:40)
[2021-05-26] MEDS: FLUTICASONE/VILANTEROL 100/25MCG 14 PUFFS/INHALER INH SCH (07:40)
[2021-05-26] MEDS ORDERED: AZITHROMYCIN 250 MG TAB PO ONE (11:13)
[2021-05-26] MEDS: ENOXAPARIN INJ 40 MG/0.4 ML SYR SQ SCH (11:59)
--- NOTE | 2021-05-26 16:10 | Discharge Summary ---
Date of Service May 26, 2021 Admission HPI Per Admitting Provider Attending: Dr. Rao 75-year-old female with a past medical history including COPD, CAD, history of TN, anxiety, hypertension, cerebrovascular disease. Patient presents with a 2 to 3-day history of progressive shortness of breath. Last night approximidnight her breathing got worse and she had severe bronchospasm. She has a nebulizer at home but does not have any ampules so she was only able to use her rescue inhaler. As the night progressed, she got more short of breath. She presented the emergency department and was given a 1 hour long nebulizer treatment. She was also given 60 mg of methylprednisolone IV and doxycycline 100 mg IV. She improved but continues to have shortness of breath and diffuse bronchospasm. Patient currently denies any chest pain or tightness. She is unaware of tachyarrhythmia. She has no nausea or vomiting. She denies any fever, chills, sweats, rigors at home. No nausea or vomiting. No other previous illness. Patient has not received her Covid vaccinations. She desires to be vaccinated but has not been able to coordinate with outpatient providers. PCR testing in the emergency department was negative. Patient is a lifelong non-smoker. She has no significant vocational exposure to chemicals, dust, silicone. Patient currently lives with her son and grandchildren. No one else in the home has been ill and no one has history of Covid. Principal Diagnosis COPD exacerbation Discharge Exam GENERAL : No acute distress EYES: No icterus, gaze conjugate NOSE: No evidence of epistaxis MOUTH: No lesions or candidiasis NECK: Supple LUNGS: Diffuse bronchospasm and rhonchi. Very diminished breath sounds. Good inspirational effort but limited movement of air. HEART: Regular, rate in the low 100s ABDOMEN: Soft, NT, ND, BS Present EXTREMITIES: No LE edema, pedal pulses intact and equal bilaterally NEURO: A&OX3 Discharge Data Allergies Allergy/AdvReac Type Severity Reaction Status Date / Time No Known Allergies Allergy Verified 05/22/21 07:08 Consultations 05/22/21 08:15 ED Decision to Admit Stat Hospital Course (1) COPD exacerbation: 75-year-old female with a past medical history including COPD, CAD, history of TN, anxiety, hypertension, cerebrovascular disease. 2 to 3-day progressive COPD exacerbation with shortness of breath, wheezes, cough. Negative for COVID-19. Responded well to hour-long nebulizer treatment in the emergency department Acute and chronic hypoxic respiratory failure. resolved. Patient required supplemntary oxygen [facility] Patient with history of COPD as diagnosed in [facility] with pulmonary function testing Patient son will try to obtain copies of the PFT reports Methylprednisolone has been cut back/ DuoNeb 4 times daily PRN We will change patient from her home Spiriva and Advair Diskus to Brio Ellipta while inpatient Due to exacerbation, will most likely need to discharge home on Brio Ellipta We will need to follow-up in the pulmonary office and establish as a new patient. Continue ceftriaxone and azithromycin. Follow on med telemetry secondary to hypoxia on arrival. Over course of hospital stay, her symptoms improved. will need f/u with pulmonary will be discharged to complete 7 days of cephalosporin total Will complete prednisone taper at home. completed 5 day of azithromycin. Patient will continue advair at discharge. (2) Anxiety: Continue outpatient Cymbalta We will add lorazepam 0.5 mg IV every 6 hours for anxiety secondary to shortness of breath (3) Hypertension: Continue lisinopril Follow on telemetry per protocol (4) Coronary artery disease: History of TN in the past No recent chest pain or tightness Follow on medical telemetry Continue aspirin 81 mg p.o. daily (5) Cerebrovascular disease: No neurological deficits on exam Continue aspirin 81 mg p.o. 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 Will most likely need repeat PFTs as an outpatient as well as an outpatient appointment [place] [facility] [place] Total Time Total Time Spent Total Time Spent (In Minutes): 32 Discharge Plan Discharge Items Patient Disposition: Home - Self-Care Reason For Visit: COPD EXACERBATION Discharge Diagnosis: COPD exacerbation Condition on Discharge: Good Activity: Resume your previous activity Non-emergency contact: Primary Care Provider Call non-emergency contact if: you have any medication questions Follow-up/Referrals: Paris Porter CRNP [Nurse Practitioner] - 06/06/21 2:00 pm Diet: Heart Healthy Addtl Attending Provider Instructions: You have been hospitalized for an acute medical problem. During your stay at [facility], we have made an effort to correct the problem that brought you to the hospital while keeping you as comfortable as possible. Medications were used to bring your condition under control and your discharge instructions will include directions for any medications you should take after leaving the hospital. Please make sure you see your Primary Care Provider as part of your follow up plan. Pending Studies at Discharge: No Stand-Alone Forms: My [facility], Smoking Cessation Medications and DC Order Prescriptions: New prednisone 10 mg tablet 10 mg PO DAILY Qty: 20 RF: 0 cefuroxime axetil 500 mg tablet 500 mg PO BID Qty: 4 RF: 0 Continued Spiriva with HandiHaler 18 mcg capsule, w/inhalation device 1 cap inhalation DAILY Qty: 30 RF: 2 albuterol sulfate [Ventolin HFA] 90 mcg/actuation HFA aerosol inhaler 2 puff inhalation Q6H PRN (Reason: Shortness Of Breath) RF: 0 cyclobenzaprine 10 mg tablet 10 mg PO TID PRN (Reason: Muscle Spasm) RF: 0 omeprazole 20 mg capsule,delayed release(DR/EC) 20 mg PO QAM RF: 0 aspirin [Adult Aspirin Regimen] 81 mg tablet,delayed release (DR/EC) 81 mg PO DAILY Qty: 30 RF: 2 betamethasone dipropionate 0.05 % cream 1 applic topical DAILY PRN (Reason: itching) Qty: 15 RF: 1 nitroglycerin 0.4 mg tablet, sublingual 0.4 mg sublingual Q5M PRN (Reason: chest pain) Qty: 30 RF: 0 atorvastatin 40 mg Tablet 40 mg PO HS RF: 0 fluticasone propion-salmeterol [Advair Diskus] 250-50 mcg/dose Blister With Device 1 inh INHALATION Q12H RF: 0 promethazine 25 mg Tablet 25 mg PO TID PRN (Reason: Nausea) RF: 0 ibuprofen 200 mg Tablet 600 mg PO Q6H PRN (Reason: Pain) RF: 0 duloxetine [Cymbalta] 30 mg Capsule,Delayed Release(Dr/Ec) 30 mg PO QAM RF: 0 lisinopril 20 mg tablet 20 mg PO QAM RF: 0 Discharge Orders: Discharge Order (Routine); Ordered 05/26/21 Ordered By: Avtar Rao Admission Data Admit Date/Time: 05/22/21 10:04 Attending Provider: Avtar Rao Admit Provider: Avtar Rao Primary Care Provider: Faith Rodriguez Other Providers: Avtar Rao Other Interventions: Discharge Summary Assessment (RN) Last Done: 05/26/21 12:07 Coding Level of Care Code D/C DAY MANAGEMENT >30 MINS Diagnoses COPD exacerbation J44.1 Anxiety F41.9 Hypertension I10 Coronary artery disease I25.10 Cerebrovascular disease I67.9 DVT prophylaxis Z29.9
== END 2021-05-26 15:43 | disposition home or self-care (01) | DRG 190 ==
LOC: ED 05:16 → EDINP 10:04 → 2N 16:02